=== PATIENT | male | born 1960 | race Caucasian/White ===

== ENCOUNTER 2016-06-07 10:52 | Inpatient (IN) | payer BC, OTHER ==
[~2016-06-07] VITALS: Ht 170.2 cm; Wt 100.7 kg
--- NOTE | 2016-06-07 18:44 | NUR ---
1815 PATIENT TRANSFERED TO ICU ROOM 2121 REPORT TO YANE CHAMBERLAIN
[2016-06-08 03:48] LABS: HEMOGLOBIN 14.6 gm/dl (14.0-17.5); RED BLOOD COUNT 4.66 M/UL (4.20-5.50); WHITE BLOOD COUNT 11.4 K/UL (4.5-11.0)
[2016-06-08 04:02] LABS: BUN/CREATININE RATIO 31 (0-10)
[2016-06-08] MEDS ORDERED: ASPIR 8181 MG PO (14:21)
[2016-06-08] MEDS ORDERED: PRINIVIL5 MG PO (14:22)
[2016-06-08] MEDS ORDERED: COREG 3.125M3.125 MG PO (14:22)
[2016-06-08] MEDS ORDERED: BRILINTA90 MG PO (14:23)
[2016-06-08] MEDS ORDERED: NITROGLYCERIN0.4 MG SL (14:25)
[2016-06-08] MEDS ORDERED: PRAVACHOL40 MG PO (14:26)
[2016-06-08] MEDS ORDERED: MEDROL DOSEPAK 24 MG PO (14:27)
[2016-06-08] MEDS ORDERED: LEVAQUIN750 MG PO (14:27)
== END 2016-06-08 15:39 | disposition home or self-care (01) | DRG 246 ==
LOC: PROG CARE 10:52 → CCU 14:09 → PROG CARE 14:09 → CCU 17:55
PROVIDERS: ADMIT Internal Medicine Interventional Cardiology
PROC: 027035Z Dilation of Coronary Artery, One Artery with Two Drug-eluting Intraluminal Devices, Percutaneous Approach (ICD-10-PCS; principal; 2016-06-07)
PROC: B2111ZZ Fluoroscopy of Multiple Coronary Arteries using Low Osmolar Contrast (ICD-10-PCS; principal; 2016-06-07)
DX: I21.4 Non-ST elevation (NSTEMI) myocardial infarction (principal); J96.01 Acute respiratory failure with hypoxia; J44.1 Chronic obstructive pulmonary disease with (acute) exacerbation; I25.5 Ischemic cardiomyopathy; F41.9 Anxiety disorder, unspecified; R03.0 Elevated blood-pressure reading, without diagnosis of hypertension; I25.10 Atherosclerotic heart disease of native coronary artery without angina pectoris; F17.210 Nicotine dependence, cigarettes, uncomplicated; E78.5 Hyperlipidemia, unspecified; G47.33 Obstructive sleep apnea (adult) (pediatric); Z99.81 Dependence on supplemental oxygen; E66.9 Obesity, unspecified; Z68.34 Body mass index [BMI] 34.0-34.9, adult; M19.90 Unspecified osteoarthritis, unspecified site; Z88.0 Allergy status to penicillin
CPT/HCPCS: 36415; 36600; 71020; 80053; 80061; 82803; 83036; 85027; 94640; 94664; C1725; C1769; C1874; C1887; C9600; J0461; J0583; J1644; J1940; J2250; J2270; J2405; J3010; J7040; J7509; Q9963

== ENCOUNTER → 2016-07-12 | Outpatient (CLI) | payer BC ==
[~2016-07-12] MED LIST: ASPIR 8181 MG PO; BRILINTA90 MG PO; COREG 3.125M3.125 MG PO; LEVAQUIN750 MG PO; MEDROL DOSEPAK 24 MG PO; NITROGLYCERIN0.4 MG SL; PRAVACHOL40 MG PO; PRINIVIL5 MG PO
== END ==
LOC: HEART 5 14:01
DX: R09.02 Hypoxemia (principal)
CPT/HCPCS: 94060; 94729